=== PATIENT | male | born 1925 | race Caucasian/White ===

== ENCOUNTER 2017-05-18 11:12 | Observation (INO) | payer MEDICARE ==
[~2017-05-18] VITALS: Ht 175.3 cm; Wt 63.0 kg
[~2017-05-18 11:12] MED LIST: CHOL500011 PO; FINA5TAB9 PO; MAGN200T PO; OXYC1TAB24 PO; UMEC1DIS IH
--- NOTE | 2017-05-18 11:22 | ED.REPORT ---
HPI-General Illness Date of Service May 18, 2017 ED Provider: Thony Michele MD The pt is an 89 y/o male w/ a hx of lung cancer, COPD, and A-fib presenting to the ED complaining of increasing weakness onset 4 weeks ago. He was sent in by his oncologist for an admit and workup for his symptoms. The pt was seen on by his PCP who diagnosed him with pneumonia with a "sputtering" cough and low O2 levels. He was prescribed Rocephin, Azithromycin, and Ceftin and reports being extremely fatigued after taking them. His son reports recently finding the pt w/ a flat pulse, dehydrated, and was unable to get a pulse oximeter reading. The pt is on 3 Liters of home O2 and used 2.5 L on demand. He reports his breathing being shallow and losing a significant amount of weight. He received a liter of saline 3 days ago and another liter of saline yesterday from his oncologist. A chest X-ray was taken three days ago which was clear. Denies vomiting, fever, chest pain, diarrhea, nausea or abdominal pain. Nursing Notes Stated Complaint: WEAK/DIZZY/SHORTNEEE OF BREATH Chief Complaint: Generalized weakness Nursing Notes Reviewed: Yes Allergies: Coded Allergies: Penicillins (Unverified Allergy, Unknown, rash, 05/28/14) Scheduled Calcium Carbonate/Vitamin D3 (Calcium 600 + Vit D3 400 Tab) 600 Mg-400 Tablet 1 EACH PO DAILY Cholecalciferol (Vitamin D3) (Vitamin D3) 1,000 Unit Tab.chew 2,000 UNIT PO DAILY Ferrous Sulfate (Ferrous Sulfate) 325 Mg Tablet 325 MG PO DAILY Finasteride (Finasteride) 5 Mg Tablet 5 MG PO DAILY Magnesium Oxide (Magnesium) 400 Mg Tablet 495 MG PO DAILY Metoprolol Tartrate (Metoprolol Tartrate) 25 Mg Tablet 25 MG PO BID Rivaroxaban (Xarelto) 10 Mg Tablet 10 MG PO BID Umeclidinium Brm/Vilanterol Tr (Anoro Ellipta 62.5-25 Mcg INH) 1 Each Disk.w.dev 1 PUFF IH DAILY Vit C/E/Zn/Coppr/Lutein/Zeaxan (Preservision Areds 2 Softgel) 1 Each Capsule 1 EACH PO DAILY Scheduled PRN Oxycodone (Roxicodone) 5 Mg Tablet 5 MG PO Q4H PRN PRN For Pain General Time Seen by MD: 11:22 Chief Complaint Weakness Hx Obtained From: Patient Arrived By: Walk-in Sudden in Onset?: Yes Onset Occurred: 1 week ago Symptom Duration: Since onset Recent Healthcare: No recent hospitalization, Recent doctor visit Similar Sx Previous: No Past Medical History Past Medical History Lung cancer COPD A-Fib Past Surgical History None reported Smoking History Unknown if Ever Smoker Ambulatory Status Independent Review of Systems Full Review of Systems Constitutional: Reports: Weakness - generalized, Denies: Fever Respiratory: Reports: Shortness of breath Cardiovascular: Denies: Chest pain GI: Denies: Abdominal pain, Diarrhea, Nausea, Vomiting Endocrine: Reports: Weight loss Neurologic: Reports: Dizziness Complete sys rev & neg: except as marked. Physical Exam Vital Signs Vital Signs Date Time Temp Pulse Resp B/P Pulse Ox O2 Delivery O2 Flow Rate FiO2 05/18/17 14:48 37 88 20 100/44 99 Room Air 05/18/17 13:25 37 68 20 108/48 98 Room Air 05/18/17 11:28 36.5 128 20 102/56 96 Room Air Initial VS: Reviewed General/Constitutional: Awake, Alert Distress / Hydration: Positive: Dehydration moderate Appearance / Presentation: Positive: Frail Elderly Head / Eyes: Atraumatic, Normocephalic ENT: Airway patent Mouth: Positive: Mucous membranes dry Neck: Atraumatic, Full range of motion Respiratory / Chest: Atraumatic, Breath sounds NL, Breath sounds = bilat, No respiratory distress, No rales, No rhonchi, No wheezing Cardiovascular: Regular rhythm, Heart sounds NL Heart Rate / Rhythm: Positive: Tachycardia Port-a-cath in L chest Trace LE edema Abdomen: Atraumatic, Soft, Non-tender Back: Atraumatic, Full range of motion Skin: No rash, Warm, Dry, Intact Neurologic: Oriented X3, Speech NL Psychiatric: Affect NL, Mood NL Interpretation & Diagnostics Lab Results Interpretation Result Diagram: 05/18/17 1155 05/18/17 1155 Test 05/18/17 11:55 White Blood Count 6.0th/mm3 (3.8-10.1) Red Blood Count 2.89mil/mm3 (4.40-5.80) Hemoglobin 8.6g/dL (13.8-17.2) Hematocrit 26.6% (41.0-50.0) Mean Corpuscular Volume 92.0fL (81-100) Mean Corpuscular Hemoglobin 29.8pg (27.0-35.0) Mean Corpuscular Hemoglobin Concent 32.3% (32.0-37.0) Red Cell Distribution Width 14.5% (12.3-15.4) Platelet Count 179bil/L (150-400) Neutrophils (%) (Auto) 85.0% (40-74) Lymphocytes (%) (Auto) 4.8% (14-46) Monocytes (%) (Auto) 6.0% (4-12) Eosinophils (%) (Auto) 1.5% (0-5) Basophils (%) (Auto) 0.2% (0-3) Sodium Level 134mEq/L (134-144) Potassium Level 4.0mEq/L (3.5-5.2) Chloride Level 95mEq/L (97-108) Carbon Dioxide Level 24mmol/L (18-29) Blood Urea Nitrogen 10mg/dL (8-27) Creatinine 0.50mg/dL (0.76-1.27) Estimat Glomerular Filtration Rate 166mL/min (>59) Glucose Level 93mg/dL (60-99) Lactic Acid Level 0.9mmol/L (0.4-2.0) Calcium Level 9.8mg/dL (8.5-10.1) Magnesium Level 1.3mg/dL (1.6-2.6) Total Bilirubin 0.4mg/dL (0.0-1.2) Aspartate Amino Transf (AST/SGOT) 18U/L (0-50) Alanine Aminotransferase (ALT/SGPT) 5U/L (0-44) Alkaline Phosphatase 199U/L (25-160) Total Protein 6.1g/dL (6.4-8.4) Albumin 2.8g/dL (3.4-5.0) Lipase 88U/L (13-60) ECG Interpretation ECG Interpretation: sinus rhythm w/ pvc RBBB No acute ST changes Time: 12:01 Interpreted by: ED physician CT Chest Interpretation IMPRESSION: 1. Filling defect within the distal aspect of the right main pulmonary artery extending into a perihilar mass. Filling defect may represent tumor versus embolic thrombosis. 2. Right perihilar mass, enlarged compared to prior exam most suggestive of neoplasm. There is obstruction of the distal aspect of the right bronchus secondary to mass lesion. 3. Mild pericardial effusion. 4. Unchanged ascending thoracic aneurysmal dilation. 5. Minimal bilateral pleural effusions. 6. Unchanged adrenal masses. 7. Lucency and sclerosis throughout the visualized thoracolumbar spine highly suggestive of metastatic disease. The above findings were discussed with Dr. Thony Michele on 05/18/17 at 2 PM. Dictated by: Soco Ramirez M.D. on 05/18/2017 at 13:13 Approved by: Soco Ramirez M.D. on 05/18/2017 at 14:11 Study type: CT pulm angiogram Interpretation / Wet Read by: Interpret - Radiologist CT Abd / Pelvis Interpretation IMPRESSION: 1. Multiple low attenuation hepatic foci unchanged and suggestive of cysts. 2. Heterogeneous low-attenuation appearance within patchy regions of the right hepatic lobe as above. Overall this is nonspecific. This could be related to alterations in fatty change. However, infiltrative hepatic metastatic disease cannot be excluded. 3. Interval pancreatic ductal dilation with proximal solid pancreatic body mass as above. Overall appearance is most concerning for neoplasm. In addition, multiple scattered cystic-like foci are present within the pancreas, new compared to prior exam. The latter could be medical center representative of cysts, IPMN or other neoplasm. 3. Calcifications are present within the dependent bladder. 4. Bilateral adrenal masses, unchanged. 5. Minimal bilateral pleural effusions and mild pericardial effusion. Dictated by: Soco Ramirez M.D. on 05/18/2017 at 14:11 Approved by: Soco Ramirez M.D. on 05/18/2017 at 14:20 Study type: Abdom CT oral contrast Interpretation / Wet Read by: Interpret - Radiologist Re-Eval/Medical Decision Med Decision/Clinical Course Worsening weakness and fatigue in a patient with advanced metastatic lung cancer. There is questionable evidence of either tumor invasion or pulmonary embolism in the right lung field however the patient is not a candidate for anticoagulation given history of severe bleeding on zarelto. Patient will be admitted Source of Hx: Old records Time of Eval: 14:55 Re-Evaluation/Progress Note: Rechecked pt. He wants to be DNR/DNI Consultation : Referral / Consult Name: Adan John MD Consulted With: Hospitalist Call Returned at: 14:26 Supervisor [employer]: Will see patient, Agrees with eval, Agrees with plan, Accepts admit Counseled Regarding: Diagnosis, Lab results, Need for admission Discharge & Departure Primary Impression: Generalized weakness Additional Impressions: Dehydration Hypomagnesemia Metastatic cancer Disposition: ADMITTED TO HOSPITAL Discharge Condition All VS Reviewed: Yes Condition: Stable Referrals: Vinnie Givens MD (PCP) Scribtommy Attestation Portions of this note were transcribed by Seymour Gomez. I, Dr. Michele personally performed the history, physical exam and medical decision-making; I reviewed and confirmed the accuracy of the information in the transcribed note. Signed by : Padmini Taylor, 05/18/17 and 1127. copies to: Vinnie Givens MD, Timothy S DO May 18, 2017 11:22 Seymour Gomez May 18, 2017 11:30
[2017-05-18 11:28] VITALS: BP 102/56; PULSE 128; RESP 20; O2SAT 96
[2017-05-18] MEDS ORDERED: 0.9% Sodium Chloride 1,000 ML IV ONE (11:37)
[2017-05-18] MEDS ORDERED: Ondansetron 2 mg/mL 2 mL Inj IV PRN (11:40)
[2017-05-18 12:11] LABS: BASOPHILS % (AUTO) 0.2 % (0-3); EOSINOPHILS % (AUTO) 1.5 % (0-5); Mean Corpuscular Hemoglobin 29.8 pg (27.0-35.0); Platelet Count 179 bil/L (150-400)
[2017-05-18 12:36] LABS: Magnesium 1.3 mg/dL (1.6-2.6)
[2017-05-18] MEDS ORDERED: Magnesium Sulf 4 Gm/100 mL H2O 4 GM in IV Premix 1 EACH IV ONE (12:45)
[2017-05-18 13:25] VITALS: BP 108/48; PULSE 68; RESP 20; O2SAT 98
--- NOTE | 2017-05-18 14:13 | DRSVH ---
PROCEDURE: CT ANGIO CHEST PULMONARY EMBOLISM ([id number]) INDICATIONS: weakness, dyspnea, h/o CA TECHNIQUE: After the administration of intravenous contrast, 2 mm thick sections acquired from the pulmonary api kyra to the posterior costophrenic angles. 3-dimensional maximum intensity projection (MIP) coronal a nd sagittal reformats were then acquired through the thorax. For radiation dose reduction, the follo wing was used: automated exposure control, adjustment of mA and/or kV according to patient size. COMPARISON: [facility], CT, CT ABD PELVIS W CON, 05[facility]18/2017, 12:59[facility] [place] TO MID THIGH, 06/11/2014, 9:20. FINDINGS: Image quality: Excellent. Pulmonary arteries: . There is marked narrowing of the right-sided pulmonary vasculature extending into the region of the perihilar mass. There is filling defect in the distal aspect of the right main pulmonary artery. Lungs and pleura: There is a heterogenously enhancing mass in the right perihilar region measuring 5 2 mm AP x 43 mm transverse, enlarged compared to prior exam of 42 mm x 35 mm transverse. There are mi nimal bilateral pleural effusions. Central and peripheral airways demonstrate distal obstruction seco ndary to perihilar mass. There is frothy appearance within the right mainstem bronchus proximally. T here is a minimal appearance of streaky opacity in the right upper lobe, likely residual scarring fro m the site of previous mass lesion on 06/11/14. Mediastinum: Heart size is normal, with mild pericardial effusion, measuring 12 mm. There are enlar ged mediastinal adenopathy, the largest measuring 16 mm in short axis. There is mild aneurysmal dila tion of the ascending thoracic aorta measuring 43 mm, unchanged. Esophagus is mildly fluid filled. Bones and chest wall: Multiple areas areas of lucency and sclerosis throughout the visualized thorac olumbar spine. Ribs and thoracic spine appear intact throughout. Thyroid gland is unremarkable. No axillary or supraclavicular adenopathy. Abdomen: Bilateral adrenal masses are again noted, unchanged. Visualized upper abdominal solid orga ns appear normal in the early arterial phase of enhancement. IMPRESSION: 1. Filling defect within the distal aspect of the right main pulmonary artery extending into a perihi lar mass. Filling defect may represent tumor versus embolic thrombosis. 2. Right perihilar mass, enlarged compared to prior exam most suggestive of neoplasm. There is obstru ction of the distal aspect of the right bronchus secondary to mass lesion. 3. Mild pericardial effusion. 4. Unchanged ascending thoracic aneurysmal dilation. 5. Minimal bilateral pleural effusions. 6. Unchanged adrenal masses. 7. Lucency and sclerosis throughout the visualized thoracolumbar spine highly suggestive of metastati c disease. The above findings were discussed with Dr. Thony Michele on 05/18/17 at 2 PM. Dictated by: Soco Ramirez M.D. on 05/18/2017 at 13:13 Approved by: Soco Ramirez M.D. on 05/18/2017 at 14:11
--- NOTE | 2017-05-18 14:22 | DRSVH ---
PROCEDURE: CT ABDOMEN AND PELVIS WITH CONTRAST ([id number]) INDICATIONS: weakness, dyspnea, h/o CA TECHNIQUE: After the administration of intravenous contrast, 5 mm thick sections acquired from the diaphragm to the symphysis. 5 mm coronal and sagittal reformats were acquired. For radiation dose reduction, the following was used: automated exposure control, adjustment of mA and/or kV according to patient lexi sanders. COMPARISON: [facility], CT, CT ANGIO CHEST PE, 05/18/2017, 12:59. [facility] , [place], PET/CT NECK TO MID THIGH, 06/11/2014, 9:20. FINDINGS: Image quality: Excellent. ABDOMEN: Lung bases: Minimal bilateral pleural effusions and mild pericardial effusion. Solid organs: Liver and spleen are normal in size. Multiple low attenuation hepatic foci are present , unchanged. There is a somewhat heterogeneous low-attenuation appearance within multiple regions of the right hepatic lobe. Gallbladder is unremarkable. Biliary system is non dilated. Pancreas demons trates multiple cystic foci with mild dilation of the pancreatic duct. There is a heterogeneous mass along the anterior aspect of the proximal pancreatic body measuring 25 mm AP by 33 mm transverse, new compared to prior exam. In addition, scattered cystic-like regions are also present within the pancr eas. Bilateral adrenal masses are unchanged. Kidneys demonstrate normal size and enhancement, withou t hydronephrosis. Nonobstructing bilateral renal calculi are present. Peritoneum and bowel: Bowel loops demonstrate normal wall thickness and caliber. No free fluid or a ir. Nodes and vessels: No retroperitoneal or mesenteric adenopathy by size criteria. Aorta and inferior vena cava are normal in size. Miscellaneous: No ventral hernias. PELVIS: Genitourinary: Bladder wall thickness is normal. Calcifications are present within the dependent bl adder. Miscellaneous: No inguinal hernias or adenopathy. Bones: Scattered areas of lucency and sclerosis are present within the thoracolumbar spine. No verteb ral body compression fractures. IMPRESSION: 1. Multiple low attenuation hepatic foci unchanged and suggestive of cysts. 2. Heterogeneous low-attenuation appearance within patchy regions of the right hepatic lobe as above. Overall this is nonspecific. This could be related to alterations in fatty change. However, infiltra tive hepatic metastatic disease cannot be excluded. 3. Interval pancreatic ductal dilation with proximal solid pancreatic body mass as above. Overall toño earance is most concerning for neoplasm. In addition, multiple scattered cystic-like foci are present within the pancreas, new compared to prior exam. The latter could be specialty sales representative of cysts, IPMN o r other neoplasm. 3. Calcifications are present within the dependent bladder. 4. Bilateral adrenal masses, unchanged. 5. Minimal bilateral pleural effusions and mild pericardial effusion. Dictated by: Soco Ramirez M.D. on 05/18/2017 at 14:11 Approved by: Soco Ramirez M.D. on 05/18/2017 at 14:20
[2017-05-18] MEDS ORDERED: FERR-83 PO (14:34)
[2017-05-18] MEDS ORDERED: OXYC-474 PO (14:34)
[2017-05-18] MEDS ORDERED: MAGN400T39 PO (14:34)
[2017-05-18] MEDS ORDERED: UMEC1DIS IH (14:34)
[2017-05-18] MEDS ORDERED: METO25TA6 PO (14:34)
[2017-05-18] MEDS ORDERED: RIVA10TA PO (14:34)
[2017-05-18] MEDS ORDERED: CALC-1034 PO (14:34)
[2017-05-18] MEDS ORDERED: VIT1CAPS46 PO (14:34)
[2017-05-18] MEDS ORDERED: CHOL10008 PO (14:34)
[2017-05-18] MEDS ORDERED: Ondansetron 2 mg/mL 2 mL Inj IVPUSH PRN (14:50)
[2017-05-18 15:31] LABS: APPEARANCE,URINE HAZY (CLEAR,HAZY); COLOR,URINE YELLOW (YELLOW); OCCULT BLOOD,URINE NEGATIVE (NEGATIVE); UROBILINOGEN,URINE NORMAL (NORMAL)
--- NOTE | 2017-05-18 16:04 | NUR ---
Admit Pt arrived from ER on stretcher. Able to stand and amb to bed. Son present at arrival. Orientated to room and call light. paged about arrival.
--- NOTE | 2017-05-18 16:50 | PCM.HPMED ---
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 pt started feeling weak, deconditioned. pt is usually pretty active, independent. Pt was seen by PCP on , diagnosed with PNA, finished 5days of z-cait and Ceftin 500 mg b.i.d. pt at that time, had labored breathing, increased sputum, purulent. pt was followed by in the clinic 05/15, 05/17 for hydration, however, pt continued to be deconditioned with poor appetite, has baseline loose stools, unchanged after finishing abx, denied increasing sob, cough, chest pain, rather breathing was better after finishing abx. Medication use was erratic due to poor condition, only using inhaler and finasteride regularily. As per son, pt lost about 10lbs since father's day, which is unusual for him as pt maintained very active lifestyle at baseline prior to this episode. ROS: denied fever, but had chills with coldness, no urinary sx, no travel, sick contact. ED VS [id number], [id number], afebrile, 96% onRA, labs showed normal wbc and poly85 , [id number], mg.1.3 otherwise unremarkable. CTA chest showed Filling defect within the distal aspect of the right main pulmonary artery extending into a perihilar mass,, enlarged Right perihilar mass, Lucency and sclerosis throughout the visualized thoracolumbar spine. CT abdlpelvis showed fatty infiltrate in liver, pancreatic duct dillatation, mass. Review of Systems: Pertinent positives as noted in history of present illness. All other systems were reviewed and are negative Allergies Coded Allergies: Penicillins (Unverified Allergy, Unknown, Hives, 05/18/17) Home Medications tylenol 500mg bid prn calcium po tid ferrous sulfate 325mg qd finasteride 5mg qd magnesium oxide 495mg qd oxycodone 5mg q4h prn Anoro Ellipta 1puff qd currently not on Xarelto, metoprolol PMH PMH Right adenoma of adrenal, hypertension, palpitations with abnormal Holter monitor, wet macular degeneration, diffuse arthritis, bilateral gynecomastia, bilateral hand enlargement, possible acromegaly, severe low extremity edema versus lymphedema, PSH laminectomy of lumbar spine 195, cataract extraction 1999, corneal transplant 2001. Family History no hx of CAD Social History Hx Alcohol Use: No Hx Substance Use: No Smoking Status: Unknown if Ever Smoker Exam Vital Signs Vital Sign - Last Date Time Temp Pulse Resp B/P Pulse Ox O2 Delivery O2 Flow Rate FiO2 05/18/17 13:25 37 68 20 108/48 98 Room Air Exam NAD, comfortably laying down on the bed no JVD, dryMM, no LAD RRR, nl s1, s2 no mrg CTAB, no w,c S,ND,NT,normoactive BS+ warm, no edema, pulses 2/2 Lab and Diagnostics Result Diagram: 05/18/17 1155 05/18/17 1155 X-Rays, CTs and MRIs PROCEDURE: CT ABDOMEN AND PELVIS WITH CONTRAST ([id number]) INDICATIONS: weakness, dyspnea, h/o CA TECHNIQUE: After the administration of intravenous contrast, 5 mm thick sections acquired from the diaphragm to the symphysis. 5 mm coronal and sagittal reformats were acquired. For radiation dose reduction, the following was used: automated exposure control, adjustment of mA and/or kV according to patient size. COMPARISON: [facility], CT, CT ANGIO CHEST PE, 05/18/2017, 12:59. [facility], [place], PET/CT NECK TO MID THIGH, 06/11/2014, 9:20. FINDINGS: Image quality: Excellent. ABDOMEN: Lung bases: Minimal bilateral pleural effusions and mild pericardial effusion. Solid organs: Liver and spleen are normal in size. Multiple low attenuation hepatic foci are present, unchanged. There is a somewhat heterogeneous low- attenuation appearance within multiple regions of the right hepatic lobe. Gallbladder is unremarkable. Biliary system is non dilated. Pancreas demonstrates multiple cystic foci with mild dilation of the pancreatic duct. There is a heterogeneous mass along the anterior aspect of the proximal pancreatic body measuring 25 mm AP by 33 mm transverse, new compared to prior exam. In addition, scattered cystic-like regions are also present within the pancreas. Bilateral adrenal masses are unchanged. Kidneys demonstrate normal size and enhancement, without hydronephrosis. Nonobstructing bilateral renal calculi are present. Peritoneum and bowel: Bowel loops demonstrate normal wall thickness and caliber. No free fluid or air. Nodes and vessels: No retroperitoneal or mesenteric adenopathy by size criteria. Aorta and inferior vena cava are normal in size. Miscellaneous: No ventral hernias. PELVIS: Genitourinary: Bladder wall thickness is normal. Calcifications are present within the dependent bladder. Miscellaneous: No inguinal hernias or adenopathy. Bones: Scattered areas of lucency and sclerosis are present within the thoracolumbar spine. No vertebral body compression fractures. IMPRESSION: 1. Multiple low attenuation hepatic foci unchanged and suggestive of cysts. 2. Heterogeneous low-attenuation appearance within patchy regions of the right hepatic lobe as above. Overall this is nonspecific. This could be related to alterations in fatty change. However, infiltrative hepatic metastatic disease cannot be excluded. 3. Interval pancreatic ductal dilation with proximal solid pancreatic body mass as above. Overall appearance is most concerning for neoplasm. In addition, multiple scattered cystic-like foci are present within the pancreas, new compared to prior exam. The latter could be client service representative of cysts, IPMN or other neoplasm. 3. Calcifications are present within the dependent bladder. 4. Bilateral adrenal masses, unchanged. 5. Minimal bilateral pleural effusions and mild pericardial effusion. Dictated by: Soco Ramirez M.D. on 05/18/2017 at 14:11 Approved by: Soco Ramirez M.D. on 05/18/2017 at 14:20 PROCEDURE: CT ANGIO CHEST PULMONARY EMBOLISM ([id number]) INDICATIONS: weakness, dyspnea, h/o CA TECHNIQUE: After the administration of intravenous contrast, 2 mm thick sections acquired from the pulmonary apices to the posterior costophrenic angles. 3-dimensional maximum intensity projection (MIP) coronal and sagittal reformats were then acquired through the thorax. For radiation dose reduction, the following was used: automated exposure control, adjustment of mA and/or kV according to patient size. COMPARISON: [facility], CT, CT ABD PELVIS W CON, 05/18/2017, 12:59. [facility], [place], PET/CT NECK TO MID THIGH, 06/11/2014, 9:20. FINDINGS: Image quality: Excellent. Pulmonary arteries: . There is marked narrowing of the right-sided pulmonary vasculature extending into the region of the perihilar mass. There is filling defect in the distal aspect of the right main pulmonary artery. Lungs and pleura: There is a heterogenously enhancing mass in the right perihilar region measuring 52 mm AP x 43 mm transverse, enlarged compared to prior exam of 42 mm x 35 mm transverse. There are minimal bilateral pleural effusions. Central and peripheral airways demonstrate distal obstruction secondary to perihilar mass. There is frothy appearance within the right mainstem bronchus proximally. There is a minimal appearance of streaky opacity in the right upper lobe, likely residual scarring from the site of previous mass lesion on 06/11/14. Mediastinum: Heart size is normal, with mild pericardial effusion, measuring 12 mm. There are enlarged mediastinal adenopathy, the largest measuring 16 mm in short axis. There is mild aneurysmal dilation of the ascending thoracic aorta measuring 43 mm, unchanged. Esophagus is mildly fluid filled. Bones and chest wall: Multiple areas areas of lucency and sclerosis throughout the visualized thoracolumbar spine. Ribs and thoracic spine appear intact throughout. Thyroid gland is unremarkable. No axillary or supraclavicular adenopathy. Abdomen: Bilateral adrenal masses are again noted, unchanged. Visualized upper abdominal solid organs appear normal in the early arterial phase of enhancement. IMPRESSION: 1. Filling defect within the distal aspect of the right main pulmonary artery extending into a perihilar mass. Filling defect may represent tumor versus embolic thrombosis. 2. Right perihilar mass, enlarged compared to prior exam most suggestive of neoplasm. There is obstruction of the distal aspect of the right bronchus secondary to mass lesion. 3. Mild pericardial effusion. 4. Unchanged ascending thoracic aneurysmal dilation. 5. Minimal bilateral pleural effusions. 6. Unchanged adrenal masses. 7. Lucency and sclerosis throughout the visualized thoracolumbar spine highly suggestive of metastatic disease. The above findings were discussed with Dr. Thony Michele on 05/18/17 at 2 PM. Dictated by: Soco Ramirez M.D. on 05/18/2017 at 13:13 Approved by: Soco Ramirez M.D. on 05/18/2017 at 14:11 Assessment & Plan Acute, active Generalized weakness, poor appetite, failure to thrive, POA, panscan overall suggestive of worsening malignancy, especially pancreatic duct dilation and mass with increased lipase -will tx supportively IVF, -zofran for n/v, -tylenol, dilaudid for pain -consider palliative care after discussion with metastatic pulmonary squamous cell carcinoma on nivolumab immunotherapy since April 2016 follows , as above -appreciate input regarding assessment and tx plan, will see patient 12:30-45 tomorrow, notified to patient/family -follow up CEA, ca19-9, LDH, lipase dispo:Dispo: Patient is admitted under observation status with expectation that she will be discharged within 24-48 hours, diet:general dvt ppx:SCD DNR, DNI confirmed with patient, son Time spent 65min Laurence John MD May 18, 2017 14:46
[2017-05-18 17:00] VITALS: BP 119/57; PULSE 86; RESP 20; O2SAT 97
[2017-05-18] MEDS ORDERED: ACET-171 PO (18:25)
--- NOTE | 2017-05-18 18:26 | NUR ---
Admit nurse note Admission assessment completed after Faiza Melendez started it. Pt .is alert and oriented, sitting up in bed eating with son at bedside. Daughter is on phone answering questions as well. Pt. lives independently in his own home and watches his daughter's dog for her, walking it several times a day. Pt. only started using a walker this week. He suffered from 2 falls while on Flomax due to dizziness. He fell most recently 04/23/17 fracturing a rib when he tripped over his oxygen tubing. Med history obtained from med list made up yesterday by son and daughter. Pt. completed a course of azithromycin and ceftin yesterday for recent dx pneumonia. Advance directives to be brought in by daughter. Pt. has fluid lump on his L pinky, which he states is a fluid-filled elmer. Dr. Blackwell called to say he will be in between 12;30 and 12:40 tomorrow. Report given to Faiza Pak.
[2017-05-18] MEDS: 0.9% Sodium Chloride 1,000 ML IV SCH (19:58)
[2017-05-18 21:10] VITALS: BP 120/69; PULSE 112; RESP 20; O2SAT 100
[2017-05-19] MEDS: 0.9% Sodium Chloride 1,000 ML IV SCH ×2 (02:01→08:49)
[2017-05-19 02:04] VITALS: BP 109/62; PULSE 93; RESP 16; O2SAT 100
--- NOTE | 2017-05-19 05:23 | NUR ---
Port Pt got up to use the BSC by himself around 0100 and de-accessed his port. Pt did not seem concerned nor aware of what happened. Pt when asked new his name, , and why he was in the hospital but thought he was in [place]. Pt bed alarm was initiated. Kait from ED was contacted and re-access the port.
[2017-05-19 05:48] VITALS: BP 109/62; PULSE 87; RESP 18; O2SAT 99
[2017-05-19 07:00] LABS: BASOPHILS % (AUTO) 0.5 % (0-3); EOSINOPHILS % (AUTO) 2.5 % (0-5); Mean Corpuscular Hemoglobin 30.1 pg (27.0-35.0); Mean Corpuscular Volume 92.4 fL (81-100); NEUTROPHILS % (AUTO) 77.2 % (40-74); Platelet Count 180 bil/L (150-400)
[2017-05-19 07:31] LABS: INR 1.12 ratio
[2017-05-19 08:06] LABS: Magnesium 1.8 mg/dL (1.6-2.6); Phosphorus 2.9 mg/dL (2.5-4.9)
[2017-05-19 08:30] VITALS: BP 99/51; PULSE 97; RESP 20; O2SAT 100
[2017-05-19] MEDS ORDERED: ANORO ELLIPTA INHALATION SCH (08:30)
[2017-05-19] MEDS ORDERED: Vitamins C,E, Omega-3, Mineral Tablet PO SCH (08:30)
[2017-05-19] MEDS ORDERED: Calcium Carbonate (Oyster Shell) 500 mg Tablet PO SCH (08:30)
[2017-05-19] MEDS ORDERED: 0.9% Sodium Chloride 250 ML IV SCH (11:15)
[2017-05-19] MEDS ORDERED: Sodium Chloride LOK Flush 10 mL Syringe IVFLUSH PRN ×2 (11:15)
[2017-05-19] MEDS ORDERED: HepLOK Flush 100 unit/mL 5 mL Inj IVFLUSH PRN (11:15)
--- NOTE | 2017-05-19 12:34 | NUR ---
POLST/POA copies received from daughter Gloria. Placed copies in chart at bedside. [facility] directive Authorization for cremation Durable POA
--- NOTE | 2017-05-19 13:30 | NUR ---
Case Management: MOON and Medicare D brochure provided with explanation to patient and his daughter at the bedside. SMOOTH signed - original to chart, pt has copy. Signed at 1310.
[2017-05-19 13:36] VITALS: BP 106/53; PULSE 95; RESP 20; O2SAT 100
--- NOTE | 2017-05-19 14:11 | PCM.DIMED ---
Discharge Instructions Date of Service May 19, 2017 Dates of Hospitalization May 18, 2017 at 15:14 Discharge Diagnosis Discharge Diagnosis Generalized weakness, poa, improved metastatic pulmonary squamous cell carcinoma, poa, stable Pancreatic mass, new, poa, stable Diet Discharge Diet: Low fat, Low Sodium (eatsmall amounts frequently) Patient Instructions Patient Instructions Please make sure you stay well hydrated at all times, make sure you are drinking enough fluids. Follow-up plan As your oncologist noted today he will arrange follow up with him in a few days and will also set up a biopsy of the pancreas as an out patient. Follow-up with PCP in: 1 week Shaun Junior MD May 19, 2017 14:11
[2017-05-19] MEDS ORDERED: OXYC-474 PO (14:13)
--- NOTE | 2017-05-19 14:19 | PCM.DC.MED ---
Discharge Summary Date of Service May 19, 2017 Dates of Hospitalization Date of Hospital Admission May 18, 2017 at 15:14 Date of Discharge: May 19, 2017 Providers: Admitting Physician: Laurence John MD Primary Care Physician: Vinnie Givens MD Attending Physician: Shaun Junior MD Diagnosis at Time of Discharge Diagnosis at Time of Discharge Generalized weakness, poa, improved metastatic pulmonary squamous cell carcinoma, poa, stable Pancreatic mass, new, poa, stable Procedures XRay, CTs & MRIs PROCEDURE: CT ABDOMEN AND PELVIS WITH CONTRAST ([id number]) INDICATIONS: weakness, dyspnea, h/o CA TECHNIQUE: After the administration of intravenous contrast, 5 mm thick sections acquired from the diaphragm to the symphysis. 5 mm coronal and sagittal reformats were acquired. For radiation dose reduction, the following was used: automated exposure control, adjustment of mA and/or kV according to patient size. COMPARISON: [facility], CT, CT ANGIO CHEST PE, 05/18/2017, 12:59. [facility], [place], PET/CT NECK TO MID THIGH, 06/11/2014, 9:20. FINDINGS: Image quality: Excellent. ABDOMEN: Lung bases: Minimal bilateral pleural effusions and mild pericardial effusion. Solid organs: Liver and spleen are normal in size. Multiple low attenuation hepatic foci are present, unchanged. There is a somewhat heterogeneous low- attenuation appearance within multiple regions of the right hepatic lobe. Gallbladder is unremarkable. Biliary system is non dilated. Pancreas demonstrates multiple cystic foci with mild dilation of the pancreatic duct. There is a heterogeneous mass along the anterior aspect of the proximal pancreatic body measuring 25 mm AP by 33 mm transverse, new compared to prior exam. In addition, scattered cystic-like regions are also present within the pancreas. Bilateral adrenal masses are unchanged. Kidneys demonstrate normal size and enhancement, without hydronephrosis. Nonobstructing bilateral renal calculi are present. Peritoneum and bowel: Bowel loops demonstrate normal wall thickness and caliber. No free fluid or air. Nodes and vessels: No retroperitoneal or mesenteric adenopathy by size criteria. Aorta and inferior vena cava are normal in size. Miscellaneous: No ventral hernias. PELVIS: Genitourinary: Bladder wall thickness is normal. Calcifications are present within the dependent bladder. Miscellaneous: No inguinal hernias or adenopathy. Bones: Scattered areas of lucency and sclerosis are present within the thoracolumbar spine. No vertebral body compression fractures. IMPRESSION: 1. Multiple low attenuation hepatic foci unchanged and suggestive of cysts. 2. Heterogeneous low-attenuation appearance within patchy regions of the right hepatic lobe as above. Overall this is nonspecific. This could be related to alterations in fatty change. However, infiltrative hepatic metastatic disease cannot be excluded. 3. Interval pancreatic ductal dilation with proximal solid pancreatic body mass as above. Overall appearance is most concerning for neoplasm. In addition, multiple scattered cystic-like foci are present within the pancreas, new compared to prior exam. The latter could be site safety representative of cysts, IPMN or other neoplasm. 3. Calcifications are present within the dependent bladder. 4. Bilateral adrenal masses, unchanged. 5. Minimal bilateral pleural effusions and mild pericardial effusion. Dictated by: Soco Ramirez M.D. on 05/18/2017 at 14:11 Approved by: Soco Ramirez M.D. on 05/18/2017 at 14:20 PROCEDURE: CT ANGIO CHEST PULMONARY EMBOLISM ([id number]) INDICATIONS: weakness, dyspnea, h/o CA TECHNIQUE: After the administration of intravenous contrast, 2 mm thick sections acquired from the pulmonary apices to the posterior costophrenic angles. 3-dimensional maximum intensity projection (MIP) coronal and sagittal reformats were then acquired through the thorax. For radiation dose reduction, the following was used: automated exposure control, adjustment of mA and/or kV according to patient size. COMPARISON: [facility], CT, CT ABD PELVIS W CON, 05/18/2017, 12:59. [facility], [place], PET/CT NECK TO MID THIGH, 06/11/2014, 9:20. FINDINGS: Image quality: Excellent. Pulmonary arteries: . There is marked narrowing of the right-sided pulmonary vasculature extending into the region of the perihilar mass. There is filling defect in the distal aspect of the right main pulmonary artery. Lungs and pleura: There is a heterogenously enhancing mass in the right perihilar region measuring 52 mm AP x 43 mm transverse, enlarged compared to prior exam of 42 mm x 35 mm transverse. There are minimal bilateral pleural effusions. Central and peripheral airways demonstrate distal obstruction secondary to perihilar mass. There is frothy appearance within the right mainstem bronchus proximally. There is a minimal appearance of streaky opacity in the right upper lobe, likely residual scarring from the site of previous mass lesion on 06/11/14. Mediastinum: Heart size is normal, with mild pericardial effusion, measuring 12 mm. There are enlarged mediastinal adenopathy, the largest measuring 16 mm in short axis. There is mild aneurysmal dilation of the ascending thoracic aorta measuring 43 mm, unchanged. Esophagus is mildly fluid filled. Bones and chest wall: Multiple areas areas of lucency and sclerosis throughout the visualized thoracolumbar spine. Ribs and thoracic spine appear intact throughout. Thyroid gland is unremarkable. No axillary or supraclavicular adenopathy. Abdomen: Bilateral adrenal masses are again noted, unchanged. Visualized upper abdominal solid organs appear normal in the early arterial phase of enhancement. IMPRESSION: 1. Filling defect within the distal aspect of the right main pulmonary artery extending into a perihilar mass. Filling defect may represent tumor versus embolic thrombosis. 2. Right perihilar mass, enlarged compared to prior exam most suggestive of neoplasm. There is obstruction of the distal aspect of the right bronchus secondary to mass lesion. 3. Mild pericardial effusion. 4. Unchanged ascending thoracic aneurysmal dilation. 5. Minimal bilateral pleural effusions. 6. Unchanged adrenal masses. 7. Lucency and sclerosis throughout the visualized thoracolumbar spine highly suggestive of metastatic disease. The above findings were discussed with Dr. Thony Michele on 05/18/17 at 2 PM. Dictated by: Soco Ramirez M.D. on 05/18/2017 at 13:13 Approved by: Soco Ramirez M.D. on 05/18/2017 at 14:11 Brief History 89yo M w/ Metastatic pulmonary squamous cell carcinoma on nivolumab immunotherapy since April 2016 follows presented with generalized weakness, dehydration since father's day, 04/30. pt started feeling weak, deconditioned. pt is usually pretty active, independent. Pt was seen by PCP on , diagnosed with PNA, finished 5days of z-cait and Ceftin 500 mg b.i.d. pt at that time, had labored breathing, increased sputum, purulent. pt was followed by in the clinic 05/15, 05/17 for hydration, however, pt continued to be deconditioned with poor appetite, has baseline loose stools, unchanged after finishing abx, denied increasing sob, cough, chest pain, rather breathing was better after finishing abx. Medication use was erratic due to poor condition, only using inhaler and finasteride regularily. As per son, pt lost about 10lbs since father's day, which is unusual for him as pt maintained very active lifestyle at baseline prior to this episode. ROS: denied fever, but had chills with coldness, no urinary sx, no travel, sick contact. ED VS VT160w, [id number], afebrile, 96% onRA, labs showed normal wbc and poly85 , [id number], mg.1.3 otherwise unremarkable. CTA chest showed Filling defect within the distal aspect of the right main pulmonary artery extending into a perihilar mass,, enlarged Right perihilar mass, Lucency and sclerosis throughout the visualized thoracolumbar spine. CT abdlpelvis showed fatty infiltrate in liver, pancreatic duct dillatation, mass. Hospital Course Generalized weakness, poa, improved -poor appetite, failure to thrive -probably secondary to mild dehydration metastatic pulmonary squamous cell carcinoma, poa, active -on nivolumab immunotherapy since April 2016 follows , as above -mass itself is about the same size but we note a new pancreatic mass, see CT. Plan is to biopsy this as an outpatient. Dr Anderson will arrange this and will also arrange a follow up visit for patient in next few days. He was here seeing the patient with me and agrees patient is OK to go home with a follow up plan which we have arranged. dispo:Dispo: Patient is admitted under observation status with expectation that she will be discharged within 24-48 hours, diet:general dvt ppx:SCD DNR, DNI confirmed with patient, son Exam Vital Signs (Last) Date Time Temp Pulse Resp B/P Pulse Ox O2 Delivery O2 Flow Rate FiO2 05/19/17 13:36 36.4 95 20 106/53 100 Room Air 05/19/17 05:48 3.00 Test 05/18/17 11:55 05/18/17 15:16 05/19/17 06:05 Lactic Acid Level 0.9mmol/L (0.4-2.0) Urine Color Yellow (YELLOW) Urine Appearance Hazy (CLEAR,HAZY) Urine pH 5.0 (5.0-8.0) Urine Specific [place] 1.005 (1.003-1.035) Urine Protein Negativemg/dL (NEG,TRACE) Urine Glucose (UA) Negativemg/dL (NEGATIVE) Urine Ketones Negativemg/dL (NEGATIVE) Urine Occult Blood Negative (NEGATIVE) Urine Nitrite Negative (NEGATIVE) Urine Bilirubin Negative (NEGATIVE) Urine Urobilinogen Normalmg/dL (NORMAL) Urine Leukocyte Esterase Small (NEGATIVE) Urine RBC 0-2/hpf (0-2) Urine WBC 6-10/hpf (0-5) Urine Epithelial Cells Few/hpf (NONE-MOD) Urine Crystals None seen (NONE SEEN) Urine Bacteria Few/hpf (NONE-FEW) Urine Hyaline Casts Occasional/lpf (NONE) Urine Granular Casts None seen (NONE SEEN) Urine Waxy Casts None seen (NONE SEEN) Urine Red Blood Cell Casts None seen (NONE SEEN) Urine White Blood Cell Casts None seen (NONE SEEN) Urine Mucus None seen (None Seen) Urine Trichomonas None seen (NONE SEEN) Urine Yeast None (NONE SEEN) Urinalysis Comment None Urine Culture Reflexed Indicated White Blood Count 5.7th/mm3 (3.8-10.1) Red Blood Count 2.76mil/mm3 (4.40-5.80) Hemoglobin 8.3g/dL (13.8-17.2) Hematocrit 25.5% (41.0-50.0) Mean Corpuscular Volume 92.4fL (81-100) Mean Corpuscular Hemoglobin 30.1pg (27.0-35.0) Mean Corpuscular Hemoglobin Concent 32.5% (32.0-37.0) Red Cell Distribution Width 14.5% (12.3-15.4) Platelet Count 180bil/L (150-400) Neutrophils (%) (Auto) 77.2% (40-74) Lymphocytes (%) (Auto) 8.2% (14-46) Monocytes (%) (Auto) 10.0% (4-12) Eosinophils (%) (Auto) 2.5% (0-5) Basophils (%) (Auto) 0.5% (0-3) Prothrombin Time 12.0sec (8.1-12.5) Prothromb Time International Ratio 1.12ratio Sodium Level 136mEq/L (134-144) Potassium Level 3.9mEq/L (3.5-5.2) Chloride Level 99mEq/L (97-108) Carbon Dioxide Level 24mmol/L (18-29) Blood Urea Nitrogen 9mg/dL (8-27) Creatinine 0.50mg/dL (0.76-1.27) Estimat Glomerular Filtration Rate 166mL/min (>59) Glucose Level 96mg/dL (60-99) Calcium Level 8.8mg/dL (8.5-10.1) Phosphorus Level 2.9mg/dL (2.5-4.9) Magnesium Level 1.8mg/dL (1.6-2.6) Total Bilirubin 0.2mg/dL (0.0-1.2) Aspartate Amino Transf (AST/SGOT) 30U/L (0-50) Alanine Aminotransferase (ALT/SGPT) 6U/L (0-44) Alkaline Phosphatase 235U/L (25-160) Lactate Dehydrogenase 279U/L (100-190) Total Protein 4.9g/dL (6.4-8.4) Albumin 2.7g/dL (3.4-5.0) Lipase 200U/L (13-60) Discharge Medications Discharge Medications Calcium Carbonate/Vitamin D3 (Calcium 600 + Vit D3 400 Tab) 600 Mg-400 Tablet 1 EACH PO TID (Reported) Cholecalciferol (Vitamin D3) (Vitamin D3) 1,000 Unit Tab.chew 2,000 UNIT PO DAILY (Reported) Ferrous Sulfate (Ferrous Sulfate) 325 Mg Tablet 325 MG PO DAILY (Reported) Finasteride (Finasteride) 5 Mg Tablet 5 MG PO DAILY (Reported) Magnesium Oxide (Magnesium) 400 Mg Tablet 495 MG PO DAILY (Reported) Umeclidinium Brm/Vilanterol Tr (Anoro Ellipta 62.5-25 Mcg INH) 1 Each Disk.w.dev 1 PUFF IH DAILY (Reported) Vit C/E/Zn/Coppr/Lutein/Zeaxan (Preservision Areds 2 Softgel) 1 Each Capsule 1 EACH PO DAILY (Reported) As needed Acetaminophen (Acetaminophen) 500 Mg Tablet 500 MG PO BID PRN PRN For Pain ( Reported) Oxycodone (Roxicodone) 5 Mg Tablet 5 MG PO Q4H PRN PRN For Pain (Reported) Oxycodone (Roxicodone) 5 Mg Tablet 5 MG PO Q4H PRN PRN For Pain Prescribed by: Shaun JUNIOR MD Followup Plan Follow-up plan As your oncologist noted today he will arrange follow up with him in a few days and will also set up a biopsy of the pancreas as an out patient. Discharge Diet: Low fat, Low Sodium Patient Instructions Please make sure you stay well hydrated at all times, make sure you are drinking enough fluids. Follow-up with PCP in: 1 week Time spent 38 minutes time spent discharging patient home so far today. Shaun Junior MD May 19, 2017 14:19 Shaun Junior MD May 19, 2017 14:19
--- NOTE | 2017-05-19 15:18 | NUR ---
Discharge Reviewed DC instructions with patient and daughter, Gloria. Hard script in packet. Answered all questions. Pt taken out in w/ch to home in private auto. All belongings taken.
--- NOTE | 2017-05-20 02:23 | PROG NOTE ---
[address] [address] PROGRESS NOTE PATIENT: RENETTA ORNELAS : 1925 MR#: [id number] ADMIT: 05/18/2017 JOB ID: [id number] DATE: 05/19/2017 INPATIENT MEDICAL ONCOLOGY PROGRESS REPORT: DIAGNOSIS: 1. Metastatic pulmonary squamous cell carcinoma. 2. New pancreatic body mass, suspect metastasis versus new primary. 3. Current admission for progressive fatigue and dehydration. HISTORY OF PRESENT ILLNESS: The patient is a pleasant 89-year-old gentleman, who is undergoing treatment for metastatic pulmonary squamous cell carcinoma. He has been receiving nivolumab immunotherapy since April 2016. Approximately three weeks ago, he fell at home after tripping on his oxygen tubing and injured his right sided ribs. Shortly afterwards, he developed a worsening cough and sputum production and was empirically treated with azithromycin and Ceftin for pneumonia, although when I saw him four days ago in clinic his chest x-ray did not suggest pneumonia. He was profoundly weak and dehydrated four days ago and we gave him IV fluids on Monday and Monday. His daughter contacted us yesterday and reported that he is not doing any better and that he was sleeping almost 24 hours a day. The patient was brought to the emergency department yesterday, and had a CT chest angiogram plus CT scan of abdomen and pelvis with contrast. I reviewed CT scan images this afternoon with and we compared them with prior studies from November and February 2017 at [facility]. There is a new development of a solid appearing mass in the pancreatic mid body. This was definitely not present in November and questionably was present in February 2017. The right parahilar lung mass appears overall stable since February, given differences in technique and timing of contrast. There is an extrinsic filling defect in the right pulmonary artery that appears to be tumor invasion and was present with the same appearance in the February study. SUBJECTIVE: The patient denies any abdominal pain. He is tolerating solid food. Since admission and receiving further IV hydration, he has felt somewhat stronger. He denies any fever, chills, hemoptysis or urinary symptoms, although his urinalysis was mildly abnormal. He does endorse to exertional dyspnea, definitely worse than before. He says it is an effort for him to stand up and take a few steps. OBJECTIVE: Currently he is awake, alert and oriented x3. He is sitting up and eating his dinner. Vital signs are all normal including blood pressure 106/53, heart rate 95, temperature afebrile. LABORATORIES: Lipase was elevated at 88 yesterday, further risen to 200 today. Albumin is low at 2.7. Alkaline phosphatase is elevated at 235. Renal function is normal. Hemoglobin is low at 8.3 but otherwise normal CBC. IMPRESSION AND PLAN: 1. Metastatic pulmonary squamous cell carcinoma, so far with known widespread bony metastases. The right-sided lung mass appears overall stable. The filling defect in the right pulmonary artery appears to be direct tumor invasion and was present in February CT scan with no interval change. The patient is currently on nivolumab immunotherapy. 2. New development of a mass in the pancreatic body associated with lipase elevation, but non symptomatic. There is distal pancreatic ductal dilatation. My first suspicion is metastasis of known pulmonary squamous cell carcinoma. Given his recent weight loss, this mass actually is quite anteriorly located and easily amenable to percutaneous biopsy from anterior approach. We discussed this today and he is agreeable with the biopsy at [facility], which I will arrange for next week. 3. Severe anemia. We will recheck labs at his next appointment in one week and if needed will provide blood transfusion. Recently basic workup was done and iron and B12 deficiency were ruled out. The patient will be discharged today. We will arrange percutaneous biopsy of pancreatic mass within next week and I will see him in followup on May 29. He was instructed to return back to hospital or call if he developed new symptoms such as abdominal pain, nausea, vomiting or progressive weakness.
--- NOTE | 2017-05-20 08:07 | NUR ---
Social Work: Late Note / Initial Assessment Attempted / D/C Data: Pt is an 89 y/o male admitted on 05/18/17 for generalized weakness. Pt's PCP is Dr Givens, pt's insurance is [employer] plan of [place] [employer]. EMR reviewed. Readmit score is 5, high. EMR reviewed. Pt discussed in rounds. MD states no d/c planning needs at this time. CASING MACHINE OPERATOR attempted initial assessment, but pt had already discharged. Assessment: Pt who is independent at baseline. Plan: Pt discharged home via POV before CASING MACHINE OPERATOR could meet with them. CASING MACHINE OPERATOR attempted initial assessment, but pt had already discharged. No d/c planning needs. AUGUSTINA Craig
== END 2017-05-19 15:02 | disposition home or self-care (01) ==
LOC: SED 11:12 → MOC 15:14
PROVIDERS: ADMIT Internal Medicine; ATTEND Hospitalist
DX: C34.90 Malignant neoplasm of unspecified part of unspecified bronchus or lung (principal); R53.1 Weakness; R62.7 Adult failure to thrive; E86.0 Dehydration; K86.89 Other specified diseases of pancreas; I10 Essential (primary) hypertension; I48.91 Unspecified atrial fibrillation; E83.42 Hypomagnesemia; J44.9 Chronic obstructive pulmonary disease, unspecified; M19.90 Unspecified osteoarthritis, unspecified site; Z99.81 Dependence on supplemental oxygen; Z88.0 Allergy status to penicillin; Z66 Do not resuscitate
CPT/HCPCS: 36415; 71275; 74177; 80053; 81000; 82378; 83605; 83615; 83690; 83735; 84100; 85025; 85610; 86301; 87040; 87077; 87086; 87088; 87186; 93005; 96361; 96365; 96375; 99285; G0378; J2405; J3475; J7030; Q9967